=== PATIENT | female | born 1985 ===

== ENCOUNTER 2022-03-12 15:39 | Emergency (ER) | payer OTHER ==
[~2022-03-12] VITALS: Ht 167.6 cm; Wt 68.2 kg
[2022-03-12 19:49] VITALS: BP 128/68
== END 2022-03-12 19:52 | disposition home or self-care (01) ==
LOC: EMS 15:42
DX: S40.012A Contusion of left shoulder, initial encounter (principal); S50.12XA Contusion of left forearm, initial encounter; S60.212A Contusion of left wrist, initial encounter; W19.XXXA Unspecified fall, initial encounter; Y93.89 Activity, other specified; Y92.89 Other specified places as the place of occurrence of the external cause; Y99.0 Civilian activity done for income or pay
CPT/HCPCS: 99284; 73030-TC; 73130-TC; Z7502